=== PATIENT | female | born 1955 | race Caucasian/White ===

== ENCOUNTER 2022-12-21 21:09 | Outpatient (REF) | payer MEDICARE, OTHER, SELFPAY ==
[2022-12-21 21:34] LABS: ALT 25 U/L (14-59); AST 20 U/L (15-37); Alkaline Phosphatase 75 U/L (46-116); Anion Gap 10.5 mmol/L (3-11); BUN 29 mg/dL (7-18); Bilirubin, Total 0.3 mg/dL (0.2-1.0); CO2 27.5 mmol/L (21.0-32.0); CREATININE 1.5 mg/dL (0.55-1.02); Calcium 9.6 mg/dL (8.5-10.1); Chloride 104 mmol/L (98-107); Estimated GFR 37.72 (mL/min/1.73m2); Glucose 135 mg/dL (74-106); Potassium 4.6 mmol/L (3.5-5.1); Sodium 142 mmol/L (136-145); Total Protein 7.3 g/dL (6.4-8.2)
[2022-12-21 22:04] LABS: COMMENT (LAB VIEW ONLY) 72.13 mg/dL; Microalb ug/mg Crea 87.6 ug/mg Cr
== END 2022-12-21 21:10 | disposition home or self-care (01) ==
LOC: LBN 21:09
PROVIDERS: PCP Nurse Practitioner Family; Visit Provider Nurse Practitioner Family
DX: E11.9 Type 2 diabetes mellitus without complications (principal); I10 Essential (primary) hypertension; E78.5 Hyperlipidemia, unspecified; N18.30 Chronic kidney disease, stage 3 unspecified
CPT/HCPCS: 80053; 82043; 82570

== ENCOUNTER 2022-12-23 16:02 | Emergency (ER) | payer MEDICARE, OTHER, SELFPAY ==
[2022-12-23 16:02] VITALS: BP 140/68; PULSE 72; RESP 16; TEMP 36.6; O2SAT 92
--- NOTE | 2022-12-23 16:45 | DI.RAD_ITS ---
Exam(s) XR KNEE LT 3V AP,LAT,MARCELLA EXAM: XR KNEE LT 3V AP,LAT,MARCELLA CLINICAL HISTORY: pain post twisting injury. TECHNIQUE: 2D digital imaging was performed. COMPARISON: No exams were available for comparison FINDINGS: 3 views No evidence obvious fracture or joint effusion. No joint space narrowing. On the outer aspect of th e medial femoral condyle there is slight osseous irregularity cortex noted. There are no previous fo r comparison. IMPRESSION: Subtle osseous finding as above but doubtful for acute fracture as there is no obvious joint effusion evident. This symptoms persist and follow-up MRI would be recommended. DATA REPOSITORY: RADIATION DOSE DELIVERED:
--- NOTE | 2022-12-23 16:56 | ED.GENADUL_ITS ---
Discharge Plan Disposition Patient Disposition: Home Condition: Improving Discharge Details Clinical Impression: Left knee injury Primary Care Provider: Cole Pina ED Provider: Miracle Casiano Home Meds and New Rx's Prescriptions: Continued rosuvastatin 20 mg tablet 20 mg PO DAILY Eliquis 5 mg tablet 5 mg PO BID metformin 1,000 mg tablet 1,000 mg PO BID sotalol 80 mg tablet 80 mg PO BID furosemide 40 mg tablet 40 mg PO DAILY losartan 100 mg tablet 100 mg PO DAILY amlodipine 10 mg tablet 5 mg PO DAILY fenofibrate 160 mg tablet 160 mg PO DAILY paroxetine HCl 20 mg tablet 20 mg PO DAILY aspirin [Adult Low Dose Aspirin] 81 mg tablet,delayed release (DR/EC) 81 mg PO DAILY Osteo Bi-Flex Triple Strength 750 mg-644 mg- 30 mg-1 mg tablet 1 tab PO BID cyanocobalamin (vitamin B-12) 2,500 mcg tablet 2,500 mcg PO DAILY benazepril [Lotensin] 20 mg tablet 20 mg PO DAILY Patient Comments: pt does not think she takes vitamin B complex Capsule 1 cap PO DAILY insulin asp prt-insulin aspart [Novolog Mix 70-30FlexPen U-100] 100 unit/mL (70-30) insulin pen 47 unit subcut QAM Rx Instructions: 47 U AM 78 U PM insulin asp prt-insulin aspart [Novolog Mix 70-30FlexPen U-100] 100 unit/mL (70-30) insulin pen 47 unit subcut BID Qty: 15 0RF Rx Instructions: Inject 47u am and 78u pm allopurinol 100 mg tablet 100 mg PO DAILY Qty: 60 0RF Discharge Instructions Instructions: Knee Sprain (ED) Additional Instructions: You may have injured your meniscus or cushion between your femur and tibia bones in your left leg. Use the knee immobilizer and walker to get around. Take coated aspirin 650 mg every 6 hours as needed for pain. You may alternate this with 650 mg of Tylenol every 6 hours. Ice 20 minutes on and 20 minutes off for the next [address] Gil's office will call you tomorrow for follow-up appointment to assess you further for meniscus injury. If you do not hear from them by noon then please call them at [phone]. Return to ED for inability to ambulate with your immobilizer and walker. Discharge Data Discharge Date/Time-TO BE ENTERED AT DEPARTURE: 12/23/22 18:47 Medical Decision Making At 1 point patient yelled when she had weight on the opposite leg but not the injured 1. Leg immobilizer was placed for comfort and she was given a rolling walker. She was able to walk to the bathroom and back without yelling and said that she felt a lot better with the immobilizer on. Orthopedics is to call her tomorrow morning for a follow-up appointment for possible meniscus injury. She will take Tylenol and aspirin as needed for pain and apply ice 20 minutes on and 20 minutes off for the next 24 to 48 hours. She will return to the ED as needed for any concerns. Imaging Data Radiologic Study: Attestation: I personally reviewed and interpreted this imaging study as follows: (NAD) Imaging: X-Ray (knee--NAD, NFS) HPI General Date/Time Provider Initiated Documentation: 12/23/22 16:23 . HPI Narrative: This 67-year-old female patient presents with a chief complaint of left knee pain after a twisting injury at home. The patient states she was playing with her grandson who was using blocks and a training set. She went to get up and tripped over one of the blocks. She was afraid she was going to fall on him and therefore twisted so that she went into a chair instead. She heard a pop in her left knee but was able to walk afterwards. This pain has slowly worsened such that now if she bears weight she yells out. She cannot walk at this time. She has no weakness or numbness. She denies any other injury. She does have a recent history of sciatica. She denies lower back pain. She did not hit her head and has no neck pain. She denies any other injuries. Related Data Home Medications Medication Instructions Recorded Confirmed allopurinol 100 mg tablet 100 mg PO DAILY #60 tabs 12/21/22 12/23/22 amlodipine 10 mg tablet 5 mg PO DAILY 12/21/22 12/23/22 apixaban 5 mg tablet (Eliquis) 5 mg PO BID 12/21/22 12/23/22 aspirin 81 mg tablet,delayed 81 mg PO DAILY 12/21/22 12/23/22 release (Adult Low Dose Aspirin) benazepril 20 mg tablet (Lotensin) 20 mg PO DAILY 12/21/22 cyanocobalamin (vitamin B-12) 2,500 mcg PO DAILY 12/21/22 12/23/22 2,500 mcg tablet fenofibrate 160 mg tablet 160 mg PO DAILY 12/21/22 12/23/22 furosemide 40 mg tablet 40 mg PO DAILY 12/21/22 12/23/22 glucosamine 750 [id number] 1 tab PO BID 12/21/22 12/23/22 no1 644 mg-C 30 mg-ara 1 mg tablet (Osteo Bi-Flex Triple Strength) insulin aspar prot-insulin aspart 47 unit (0.47 mL) subcut BID #15 mL 12/21/22 12/23/22 100 unit/mL (70-30) subcutaneous pen (Novolog Mix 70-30FlexPen U-100) insulin aspar prot-insulin aspart 47 unit subcut QAM 12/21/22 100 unit/mL (70-30) subcutaneous pen (Novolog Mix 70-30FlexPen U-100) losartan 100 mg tablet 100 mg PO DAILY 12/21/22 12/23/22 metformin 1,000 mg tablet 1,000 mg PO BID 12/21/22 12/23/22 paroxetine HCl 20 mg tablet 20 mg PO DAILY 12/21/22 12/23/22 rosuvastatin 20 mg tablet 20 mg PO DAILY 12/21/22 12/23/22 sotalol 80 mg tablet 80 mg PO BID 12/21/22 12/23/22 vitamin B complex 1 cap PO DAILY 12/21/22 12/23/22 Previous Rx's Medication Instructions Recorded allopurinol 100 mg tablet 100 mg PO DAILY #60 tabs 12/21/22 insulin aspar prot-insulin aspart 47 unit (0.47 mL) subcut BID #15 mL 12/21/22 100 unit/mL (70-30) subcutaneous pen (Novolog Mix 70-30FlexPen U-100) Allergies Allergy/AdvReac Type Severity Reaction Status Date / Time ibuprofen Allergy Intermediate Verified 12/23/22 16:06 General Stated Complaint: Orthopedic RIVERA: 4 Review of Systems Constitutional Constitutional: Denies headache(s) and Denies weakness Eyes Eyes: Denies diplopia and Reports other (no redness) ENT Ears, Nose, Mouth, and Throat: Denies otalgia, Denies headache(s), Denies nasal congestion, Denies nasal discharge, Denies neck pain and Denies sore throat Cardiovascular Cardiovascular: Denies chest pain, Denies palpitations and Denies dyspnea Respiratory Respiratory: Denies cough and Denies dyspnea Gastrointestinal Gastrointestinal: Denies abdominal pain, Denies diarrhea, Denies nausea and Denies vomiting Genitourinary Genitourinary: Denies dysuria Musculoskeletal Musculoskeletal: Reports as per HPI, Denies neck pain and Denies numbness Integumentary/Breasts Skin/Breast: Reports other (No obvious swelling or ecchymosis left knee) Neurologic Neurologic: Denies headache(s), Denies numbness and Denies weakness Endocrine Endocrine: Denies palpitations PFSH All Active Problems (Updated 12/23/22 @ 18:26 by Miracle Casiano MD) Left knee injury (Acute) Sciatica, right side (Acute) Morbid obesity (Acute) Sleep apnea, obstructive (Chronic) Left ventricular hypertrophy (Acute) Iron deficiency (Acute) Hyperlipidemia (Acute) Hypercalcemia (Acute) GI bleed (Chronic) GERD (gastroesophageal reflux disease) (Chronic) Generalized anxiety disorder (Acute) Fatigue (Acute) Essential hypertension (Acute) Diverticulosis (Acute) Diabetes mellitus type 2, controlled, without complications (Acute) Coronary artery disease (Chronic) Stage 3 chronic kidney disease due to type 2 diabetes mellitus (Acute) Impacted cerumen, left ear (Acute) Nuclear senile cataract (Acute) Atherosclerosis of both carotid arteries (Acute) Benign hypertension (Acute) Angina pectoris (Chronic) Anemia (Chronic) Surgical History Status post cardiac pacemaker procedure Family History Mother Hyperlipidemia Hypertension Depression Father Hyperlipidemia Diabetes Heart disease Hypertension Obesity Stroke Sister Hyperlipidemia Diabetes Hypertension Heart disease Obesity Cancer Unspecified Brother No problems noted. Daughter Hypertension Son Hypertension Obesity Maternal Grandmother Cancer Unspecified Paternal Grandmother Memory loss Maternal Grandfather No problems noted. Paternal Grandfather Hyperlipidemia Heart disease Hypertension Obesity Social History Smoking/Tobacco Use Status: Never Second Hand Exposure: Yes Smoking risk assessment performed?: Yes Alcohol Intake: current Alcohol Intake frequency: a few times a month Alcohol type: beer and wine Drug use: Never Substance use type: does not use Caregiver/Support person: Yes Household members: spouse Housing: house Communication Needs: Hard of Hearing and Corrective Lenses Do you need help understanding health information?: Rarely Pets and animals: No Sexually active: No Do you think of yourself as: straight/heterosexual Current gender identity: female What is your relationship status?: How often do you talk on the phone with friends or family?: three or more times per week How often do you get together with friends or relatives?: three or more times per week How often do you attend mormonism or yarsanism services?: decline to answer Do you belong to any clubs or organized social groups?: yes Panel score (0-1 are the most socially isolated patients): 3 What type of physical activity do you participate in: walking Duration: 15-30 minutes/day Frequency: daily Radha/Congregation: Taoism Special radha needs: No Seatbelt use: always Helmet use: Yes Helmet use: always Drive intox or ride w/intox superintendent drivers: No Do you feel safe at home: Yes Do you feel safe in your relationship?: Yes Exam Const General: well developed, well groomed and other (obese, morbidly) Nutritional Appearance: well nourished Orientation: alert and oriented x3 HENMT Head: normocephalic and atraumatic Ears: external ears normal Mouth: oropharynx normal and moist mucous membranes Throat: posterior oropharynx normal Eyes Conjunctivae: conjunctivae normal Neck Neck: full ROM and supple Chest Chest: normal inspection of the chest Resp Effort & Inspection: normal respiratory effort Auscultation: clear to auscultation bilaterally Cardio Rate: regular rate Rhythm: regular rhythm Heart Sounds: no murmurs and no rubs GI Inspection: normal to inspection and other (Morbidly obese) Palpation: soft, nontender and other (non distended) Auscultation: normal bowel sounds Skin General skin exam: other (PWD) Neuro General: other (sensation intact LLE) Speech: speech normal Motor: other (VIRGEN) Sensory Exam: no sensory deficits noted Extrem General: normal to inspection, full ROM and pedal edema present Right lower extremity: normal to inspection and full ROM Left lower extremity: normal to inspection and full ROM Other: Left knee is nontender to palpation with good patellar ballotment. MCL and LCL are tight. Anterior and posterior cruciate ligaments are tight. Jalen's revealed a click that I could both hear and feel and the patient's said hurt. In spite of this compression was negative for pain as was distraction. Patient is neurovascularly intact distally. She yelled when she stood up on her good leg. Psych Mental Status: mental status grossly normal Speech and Movement: speech and movement normal Affect: normal affect Course Vital Signs Vital signs: Vital Signs Temperature 36.6 C 12/23/22 16:02 Pulse 72 12/23/22 16:02 Respiratory Rate 16 12/23/22 16:02 Blood Pressure 140/68 12/23/22 16:02 Pulse Oximetry 92 12/23/22 16:02 Temperature 36.6 C 12/23/22 16:02 Temperature Source Skin 12/23/22 16:02 Pulse 72 12/23/22 16:02 Respiratory Rate 16 12/23/22 16:02 Respiratory Effort Normal, Non-Labored 12/23/22 16:10 Blood Pressure 140/68 12/23/22 16:02 Blood Pressure Position Sitting 12/23/22 16:02 Pulse Oximetry 92 12/23/22 16:02 Oxygen Delivery Method Room Air 12/23/22 16:02 Oxygen Flow Rate 0 12/23/22 16:02 Pain Level 2 12/23/22 16:02 Comment when pt tries to stand pain is a 03/2612/23/22 16:02 PAWSS Have you Been Recently Intoxicated or Drunk Within the Last 30 days?: No Have you Ever Experienced Previous Episodes of Alcohol Withdrawal?: No Have you ever Experienced Withdrawal Seizures?: No Have you ever Experienced Delirium Tremens(DT)s?: No Have you ever undergone Alcohol Rehabilitation Treatment (i.e, inpt ot outpatient treatment programs)?: No Have you ever Experienced Blackouts?: No Have you ever Combined Alcohol with other Downers within the last 90 days?: No Have you ever Combined Alcohol with any other Substance of Abuse during the last 90 days?: No Positive Blood Alcohol level on Presentation? [PCS.BAL]: No Evidence of Increased Autonomic Activity (i.e. HR>120, tremor, sweating, agitation, nausea)?: No Result: 0
[2022-12-23] MEDS: Aspirin E.C. 325 MG TABEC 650 MG PO (17:02)
--- NOTE | 2022-12-23 18:09 | DI.VRAD_ITS ---
PROCEDURE INFORMATION: Exam: XR Left Knee Exam date and time: 12/23/2022 5:25 PM Age: 67 years old Clinical indication: Other: Pain post twisting injury TECHNIQUE: Imaging protocol: Radiologic exam of the left knee. Views: 3 views. COMPARISON: No relevant prior studies available. FINDINGS: Bones/joints: Normal. Soft tissues: Normal. IMPRESSION: No acute findings. Dictated and Authenticated by: Catarino Lemus MD. Ordering:KAUSHAL Rausch MD
== END 2022-12-23 18:47 | disposition home or self-care (01) ==
PROVIDERS: Emergency Provider Emergency Medicine; PCP Nurse Practitioner Family
DX: S89.92XA Unspecified injury of left lower leg, initial encounter (principal); E11.22 Type 2 diabetes mellitus with diabetic chronic kidney disease; I12.9 Hypertensive chronic kidney disease with stage 1 through stage 4 chronic kidney disease, or unspecified chronic kidney disease; N18.30 Chronic kidney disease, stage 3 unspecified; W01.0XXA Fall on same level from slipping, tripping and stumbling without subsequent striking against object, initial encounter; Y93.01 Activity, walking, marching and hiking; Y92.019 Unspecified place in single-family (private) house as the place of occurrence of the external cause; Y99.9 Unspecified external cause status
CPT/HCPCS: 73562; 82962; 99283

== ENCOUNTER → 2023-01-09 08:30 | Outpatient (BNVA) | payer MEDICARE, OTHER, SELFPAY | PROVIDERS: PCP Nurse Practitioner Family; Referring Provider Nurse Practitioner Family; Visit Provider Student in an Organized Health Care Education/Training Program | DX: S89.92XA Unspecified injury of left lower leg, initial encounter (principal); W18.49XA Other slipping, tripping and stumbling without falling, initial encounter | CPT/HCPCS: 99203; 99213 ==

== ENCOUNTER → 2023-03-05 09:55 | Outpatient (BNVA) | payer MEDICARE, OTHER, SELFPAY | PROVIDERS: PCP Nurse Practitioner Family; Referring Provider Nurse Practitioner Family; Visit Provider Surgery | DX: L91.8 Other hypertrophic disorders of the skin (principal) | CPT/HCPCS: 99202; 99213 ==

== ENCOUNTER 2023-03-11 10:59 | Outpatient (REF) | payer MEDICARE, OTHER, SELFPAY ==
--- NOTE | 2023-03-11 11:35 | SKI_PTH ---
PATIENT: Cindy Olivas LOC: [facility] U#:[id number] AGE/SX: 67/F ROOM: RE03/11/[address]: Natalie Rubio MD : 1955 BED: DIS: 03/11/2023 SPEC #: [id number] RECD: 03/11/23 17:44 STATUS: MARY BETH REQ #: [id number] ERIK: 03/11/23 11:[address]: Natalie Rubio DEPT: Surgical Specimen RECD BY: Angie Grayson ENTERED: 03/11/23 17:45 SP TYPE: LAURYN MENDES DR: Cole Mckay DNP Tissues: 1 - SKIN BIOPSY(SHAVE/PUNCH) Procedures: GROSS AND MICRO LEVEL 3 Comments: [id number]
== END 2023-03-11 11:00 | disposition home or self-care (01) ==
LOC: LBN 10:59
PROVIDERS: PCP Nurse Practitioner Family; Visit Provider Surgery
DX: D23.71 Other benign neoplasm of skin of right lower limb, including hip (principal); L91.8 Other hypertrophic disorders of the skin
CPT/HCPCS: 88304; 88305

== ENCOUNTER → 2023-03-11 10:59 | Outpatient (BNVA) | payer MEDICARE, OTHER, SELFPAY | PROVIDERS: PCP Nurse Practitioner Family; Referring Provider Nurse Practitioner Family; Visit Provider Surgery | DX: L91.8 Other hypertrophic disorders of the skin (principal) | CPT/HCPCS: 11302; 99212 ==

== ENCOUNTER 2024-02-15 11:59 | Outpatient (CLI) | payer MEDICARE, OTHER, SELFPAY ==
--- NOTE | 2024-02-15 12:30 | DI.RAD_ITS ---
Exam(s) XR ABDOMEN FLAT PLATE EXAM: XR ABDOMEN FLAT PLATE CLINICAL HISTORY: insulin needle broke off, RLQ. TECHNIQUE: 2D digital imaging was performed. COMPARISON: No exams were available for comparison FINDINGS: AP supine view of the abdomen-pelvis. The bowel gas pattern is nonspecific in the supine position. There are surgical clips in the right iliac fossa probably related to prior appendectomy. There is n o radiopaque foreign body evident in the abdomen and pelvis. No acute osseous findings. IMPRESSION: No radiopaque foreign body evident. Nonspecific bowel gas pattern DATA REPOSITORY: RADIATION DOSE DELIVERED:
--- NOTE | 2024-02-15 13:06 | DI.VRAD_ITS ---
PROCEDURE INFORMATION: Exam: XR Abdomen Exam date and time: 02/15/2024 12:25 PM Age: 68 years old Clinical indication: Other: Foreign body in soft tissue, questionable diabetic needle left in skin. TECHNIQUE: Imaging protocol: Radiologic exam of the abdomen. Views: Frontal supine view of the abdomen. 1 View. COMPARISON: No relevant prior studies available. FINDINGS: Tubes, catheters and devices: Surgical clips project over the right iliac bone. Gastrointestinal tract: Normal. No bowel dilation. Bones/joints: Unremarkable. Soft tissues: No radiopaque foreign body identified. IMPRESSION: No radiopaque foreign body identified. Dictated and Authenticated by: Lilo Guillen MD. Ordering:JAMARI Galvan MD
== END 2024-02-15 12:19 ==
LOC: LBN 12:05 → DI 12:19
PROVIDERS: PCP Nurse Practitioner Family; Visit Provider Nurse Practitioner Family
DX: M79.5 Residual foreign body in soft tissue (principal)
CPT/HCPCS: 74018

== ENCOUNTER 2024-03-19 19:56 | Outpatient (REF) | payer MEDICARE, SELFPAY ==
[2024-03-19 21:15] LABS: Bilirubin Negative (Negative); Blood Trace-intact (Negative); Clarity Clear (Clear); Glucose Negative (Negative); Ketones Negative (Negative); Leukocyte Esterase Moderate (Negative); Nitrite Negative (Negative); Specific Gravity 1.015 (1.005-1.025); Urobilinogen 0.2 mg/dL (Up to 0.2); pH 5.5 (5-8)
[2024-03-19 21:39] LABS: Bacteria Negative HPF (Negative); C & S Indicated? Yes; Crystals Negative HPF (Negative); Epithelial Cells Rare HPF (Negative); Mucus Trace (Negative); Other Cells Rare Transitional (Negative); WBC 20-50 HPF (0-5)
== END 2024-03-19 19:57 | disposition home or self-care (01) ==
LOC: LBN 19:56
PROVIDERS: PCP Nurse Practitioner Family; Visit Provider Nurse Practitioner Family
DX: R39.9 Unspecified symptoms and signs involving the genitourinary system (principal); R82.89 Other abnormal findings on cytological and histological examination of urine
CPT/HCPCS: 81003; 81015; 87086

== ENCOUNTER 2024-04-30 16:28 | Outpatient (CLI) | payer MEDICARE, OTHER, SELFPAY ==
--- NOTE | 2024-04-30 15:30 | DI.RAD_ITS ---
Exam(s) XR CHEST 2V PA LATERAL EXAM: XR CHEST 2V PA LATERAL CLINICAL HISTORY: R05.9 Cough, evaluate pna TECHNIQUE: 2D digital imaging was performed. Two views. COMPARISON: CR,XR XR ABDOMEN FLAT PLATE from 02/15/2024 FINDINGS: HEART: Mildly enlarged. Pacemaker. Aorta: Not dilated. PULMONARY VASCULATURE: Mildly prominent MEDIASTINUM: Unremarkable. LUNGS: Clear. No focal infiltrate. PLEURAL SPACE: No pleural effusion or pneumothorax. BONE:Unremarkable for age. SOFT TISSUES: Unremarkable. IMPRESSION: No acute abnormality. DATA REPOSITORY: RADIATION DOSE DELIVERED:
== END 2024-04-30 16:48 ==
PROVIDERS: PCP Nurse Practitioner Family; Visit Provider Nurse Practitioner Family
DX: R05.9 Cough, unspecified (principal)
CPT/HCPCS: 71046

== ENCOUNTER 2024-11-17 09:08 | Outpatient (CLI) | payer MEDICARE, OTHER, SELFPAY ==
--- NOTE | 2024-11-17 08:15 | DI.RAD_ITS ---
Exam(s) XR CHEST 2V PA LATERAL EXAM: XR CHEST 2V PA LATERAL CLINICAL HISTORY: cough, ? pneumonia. TECHNIQUE: 2D digital imaging was performed. COMPARISON: No exams were available for comparison FINDINGS: 2 views: Bipolar left subclavian pacemaker again noted with lead tips in RA and RV, unchanged Heart size is normal. The mediastinum is not widened. Left lung is clear. There is slightly increased markings in the mid right lung field. No pleural ef fusions. No pulmonary edema. IMPRESSION: Mild increased markings in the mid right lung field. Possibly representing early infiltrate. There are no pleural effusions. Appropriate imaging follow-up to resolution recommended. DATA REPOSITORY: RADIATION DOSE DELIVERED:
== END 2024-11-17 09:28 ==
LOC: DI 09:09
PROVIDERS: PCP Nurse Practitioner Family; Visit Provider Physician Assistant
DX: R05.9 Cough, unspecified (principal)
CPT/HCPCS: 71046

== ENCOUNTER 2025-04-26 22:36 | Emergency (ER) | payer MEDICARE, OTHER, SELFPAY ==
--- NOTE | 2025-04-26 22:30 | DI.RAD_ITS ---
Exam(s) XR KNEE LT 4V AP,LAT,MARCELLA,PAT EXAM: XR KNEE LT 4V AP,LAT,MARCELLA,PAT CLINICAL HISTORY: fall, hit knee and patella, on elequis. TECHNIQUE: 2D digital imaging was performed. COMPARISON: CR,XR XR KNEE LT 3V AP,LAT,MARCELLA from 12/23/2022 FINDINGS: Five views No evidence of acute fracture nor obvious joint effusion. However, there is significant soft tissue swelling anterior to the patella consistent with probable hematoma, given the direct trauma history here. Medial and lateral compartments of the knee appear unremarkable. Some degenerative changes noted in the patellofemoral compartment. IMPRESSION: No acute osseous findings in the knee. However, there is abnormal swelling and density in the prepatellar soft tissues. Given the history here this is probably hematoma. Preliminary V rad report was reviewed DATA REPOSITORY: RADIATION DOSE DELIVERED:
--- NOTE | 2025-04-26 22:30 | DI.RAD_ITS ---
Exam(s) XR SHOULDER RT COMPLETE 2+V EXAM: XR SHOULDER RT COMPLETE 2+V CLINICAL HISTORY: fall, on elequis, pain in shoulder. TECHNIQUE: 2D digital imaging was performed. COMPARISON: No exams were available for comparison FINDINGS: Four views No evidence of fracture or dislocation nor abnormal soft tissue calcifications. Subacromial space is not diminished. There are mild degenerative changes in the glenohumeral and AC joints. Bone density normal. No osseous lesions. IMPRESSION: Mild degenerative changes in the glenohumeral joint. No fractures. DATA REPOSITORY: RADIATION DOSE DELIVERED:
[2025-04-26 22:34] VITALS: BP 168/71; PULSE 78; RESP 18; TEMP 36.6; O2SAT 94
[2025-04-26] MEDS: Diclofenac 1% Gel 100 GM TUBE TP (22:48)
[2025-04-26 22:49] LABS: Abs Immature Grans 0.04 10^3/uL (0.0-0.06); HCT 39.0 % (36.0-46.0); HGB 13.0 g/dL (11.2-15.7); Immature Grans % 0.5 %; MCH 31.0 pg (27.0-33.0); MCHC 33.3 % (32.0-36.0); MCV 93 fL (80-95); MPV 12.0 fL (8.0-11.0); Platelet Count 253 10^3/uL (130-400); RBC 4.20 10^6/uL (3.93-5.22); RDW 13.7 % (11.7-14.6); RDW-SD 45.8 fL; WBC 7.96 10^3/uL (4.4-10.8)
[2025-04-26 23:03] LABS: INR 1.0 (0.9-1.1); PTT Activated 25.2 sec (20.6-30.2); Prothrombin Time 10.4 sec (9.1-11.1)
--- NOTE | 2025-04-26 23:34 | DI.VRAD_ITS ---
PROCEDURE INFORMATION: Exam: XR Left Knee Exam date and time: 04/26/2025 10:55 PM Age: 69 years old Clinical indication: Injury or trauma; Blunt trauma; Left; Injury date: 04/26/25; Injury details: Fall, hit knee on patella, on elequis TECHNIQUE: Imaging protocol: Radiologic exam of the left knee. Views: 4 or more views. COMPARISON: CR XR KNEE LT 3V AP,LAT,MARCELLA 12/23/2022 5:25 PM FINDINGS: Bones/joints: Normal. Soft tissues: Thickened anterior soft tissue. IMPRESSION: 1. No acute findings. 2. Thickened anterior soft tissue which could represent contusion/hematoma. Dictated and Authenticated by: John Palacios MD. Orderin Matt Chu MD
--- NOTE | 2025-04-26 23:36 | DI.VRAD_ITS ---
PROCEDURE INFORMATION: Exam: XR Right Shoulder Exam date and time: 04/26/2025 11:14 PM Age: 69 years old Clinical indication: Injury or trauma; Blunt trauma (contusions or hematomas); Right; Injury date: 04/26/25; Injury details: Fall, shoulder pain TECHNIQUE: Imaging protocol: Radiologic exam of the right shoulder. Views: 2 or more views. COMPARISON: CR XR CHEST 2V PA LATERAL 11/17/2024 10:45 AM FINDINGS: Bones/joints: Degenerative change of the acromioclavicular and glenohumeral joints. Lungs: Diffuse interstitial lung markings without focal consolidation visualized. Vasculature: Heavy atherosclerotic disease of the aortic arch. Soft tissues: Normal. Other findings: Partially evaluated cardiac pacer device. IMPRESSION: No acute findings. Dictated and Authenticated by: John Palacios MD. Orderin Matt Chu MD
--- NOTE | 2025-04-26 23:50 | W.ED.GENAD ---
Discharge Plan Disposition Patient Disposition: Home Condition: Good Discharge Details Clinical Impression: Injury of left knee, Hematoma of left knee region, Sprain of right shoulder Primary Care Provider: Cole Pina ED Provider: Vlad Gutierrez Home Meds and New Rx's Prescriptions: No Action allopurinol 100 mg tablet 300 mg .ROUTE .COMPLEX Rx Instructions: 300 mg; insulin glargine [Basaglar KwikPen U-100 Insulin] 100 unit/mL (3 mL) insulin pen 50 unit subcut BID Ozempic 0.25 mg or 0.5 mg (2 mg/3 mL) pen injector 0.5 mg subcut QWEEK Rx Instructions: for 4 weeks benzonatate 100 mg capsule 100 mg PO TID PRN (Reason: cough) Qty: 14 0RF cholecalciferol (vitamin D3) 10 mcg (400 unit) capsule 10 mcg PO DAILY fenofibrate 160 mg tablet 160 mg PO DAILY Qty: 90 1RF metformin 1,000 mg tablet 1,000 mg PO BID Qty: 180 0RF insulin asp prt-insulin aspart [Novolog Mix 70-30FlexPen U-100] 100 unit/mL (70-30) insulin pen 47 unit subcut QAM Qty: 90 1RF Rx Instructions: 47 U AM 78 U PM rosuvastatin 20 mg tablet 20 mg PO DAILY Eliquis 5 mg tablet 5 mg PO BID sotalol 80 mg tablet 80 mg PO BID furosemide 40 mg tablet 40 mg PO DAILY losartan 100 mg tablet 100 mg PO DAILY amlodipine 10 mg tablet 5 mg PO DAILY paroxetine HCl 20 mg tablet 20 mg PO DAILY aspirin [Adult Low Dose Aspirin] 81 mg tablet,delayed release (DR/EC) 81 mg PO DAILY Osteo Bi-Flex Triple Strength 750 mg-644 mg- 30 mg-1 mg tablet 1 tab PO BID cyanocobalamin (vitamin B-12) 2,500 mcg tablet 2,500 mcg PO DAILY vitamin B complex Capsule 1 cap PO DAILY fluconazole 150 mg tablet 150 mg PO ONCE Qty: 2 0RF Rx Instructions: Administer 1 tab once. If symptoms persist may repeat in 3 days albuterol sulfate 90 mcg/actuation HFA aerosol inhaler 2 puff inhalation Q6H PRN (Reason: shortness of breath or wheezing) Qty: 6.7 0RF (DME) True Metrix Glucose Test Strip Strip See Rx Instructions .Route Qty: 100 0RF Rx Instructions: As directed. Dx: E11.9 Once daily testing Discharge Instructions Instructions: Minor Contusion ED Additional Instructions: At this time your x-rays are negative for any evidence of fracture, however you do have evidence of a large hematoma in the left knee which will be causing some significant pain. Please ice the area frequently for the next 48 hours, after this you can transition to gentle heat to help the hematoma reabsorb. Keep an Guero wrap on it gently to help encourage the reabsorption of the blood/hematoma. Please use the walker to help with ambulation. Use the Voltaren gel as needed for pain in your shoulder and knee. Please take Tylenol as needed to help with the pain. If you notice a blister forming or any leakage or drainage or redness or warmth in your knee where the hematoma was please return immediately for reassessment. Please follow-up closely with your primary care provider and your eye specialist in [place] for reassessment and continued monitoring. If you notice any worsening of your symptoms, or any new symptoms such as vomiting, diarrhea, fever, chills, shortness of breath, chest pain, numbness, weakness, or fainting , please return immediately to the emergency department for reevaluation. Please follow up with your primary care provider as soon as possible for reassessment and reevaluation. As always, it was a pleasure participating in your medical care today. Stand Alone Forms: Portal Information Referrals: Cole Pina NP [Primary Care Provider, Medicine] [facility] General Date/Time Provider Initiated Documentation: 04/26/25 22:41. HPI Narrative: This is a pleasant 69-year-old female with a past medical history of GERD, type 2 diabetes, coronary artery disease, pacemaker, chronically on Eliquis, presents today for evaluation of fall. About 40 minutes prior to arrival the patient was walking in her home when she tripped on the carpet, she caught her right arm on the door and torqued her right shoulder and hit and landed on her left knee. She had pain in both of those locations. Pain is made worse with movement. Improved by nothing. She received Tylenol from EMS. She denies numbness or tingling. She did not hit her head. She had no loss of consciousness. She had immediate swelling in her left knee. She had no trauma anywhere else. No other complaints at this time. Related Data Home Medications Medication Instructions Recorded Confirmed amlodipine 10 mg tablet 5 mg PO DAILY 12/21/22 11/16/24 apixaban 5 mg tablet (Eliquis) 5 mg PO BID 12/21/22 11/16/24 aspirin 81 mg tablet,delayed 81 mg PO DAILY 12/21/22 11/16/24 release (Adult Low Dose Aspirin) cyanocobalamin (vitamin B-12) 2,500 mcg PO DAILY 12/21/22 11/16/24 2,500 mcg tablet furosemide 40 mg tablet 40 mg PO DAILY 12/21/22 11/16/24 glucosamine 750 [id number] 1 tab PO BID 12/21/22 11/16/24 no1 644 mg-C 30 mg-ara 1 mg tablet (Osteo Bi-Flex Triple Strength) losartan 100 mg tablet 100 mg PO DAILY 12/21/22 11/16/24 paroxetine HCl 20 mg tablet 20 mg PO DAILY 12/21/22 11/16/24 rosuvastatin 20 mg tablet 20 mg PO DAILY 12/21/22 11/16/24 sotalol 80 mg tablet 80 mg PO BID 12/21/22 11/16/24 vitamin B complex 1 cap PO DAILY 12/21/22 11/16/24 cholecalciferol (vitamin D3) 10 10 mcg PO DAILY 01/19/23 11/16/24 mcg (400 unit) capsule fenofibrate 160 mg tablet 160 mg PO DAILY #90 tabs 01/19/23 11/16/24 insulin aspar prot-insulin aspart 47 unit (0.47 mL) subcut QAM #90 mL 01/19/23 11/16/24 100 unit/mL (70-30) subcutaneous pen (Novolog Mix 70-30FlexPen U-100) metformin 1,000 mg tablet 1,000 mg PO BID #180 tabs 01/19/23 11/16/24 fluconazole 150 mg tablet 150 mg PO ONCE #2 tabs 03/19/24 11/16/24 albuterol sulfate 90 mcg/actuation 2 puff inhalation Q6H PRN 04/30/24 11/16/24 aerosol inhaler shortness of breath or wheezing #6.7 grams blood sugar diagnostic (True #100 ea 04/30/24 11/16/24 Metrix Glucose Test Strip) allopurinol 100 mg tablet 300 mg .Route .COMPLEX 11/16/24 11/16/24 benzonatate 100 mg capsule 100 mg PO TID PRN cough #14 caps 11/16/24 11/16/24 insulin glargine 100 unit/mL (3 50 unit subcut BID 11/16/24 11/16/24 mL) subcutaneous pen (Basaglar KwikPen U-100 Insulin) semaglutide 0.25 mg or 0.5 mg (2 0.5 mg subcut QWEEK 11/16/24 11/16/24 mg/3 mL) subcutaneous pen injector (Ozempic) Previous Rx's Medication Instructions Recorded fenofibrate 160 mg tablet 160 mg PO DAILY #90 tabs 01/19/23 insulin aspar prot-insulin aspart 47 unit (0.47 mL) subcut QAM #90 mL 01/19/23 100 unit/mL (70-30) subcutaneous pen (Novolog Mix 70-30FlexPen U-100) metformin 1,000 mg tablet 1,000 mg PO BID #180 tabs 01/19/23 fluconazole 150 mg tablet 150 mg PO ONCE #2 tabs 03/19/24 albuterol sulfate 90 mcg/actuation 2 puff inhalation Q6H PRN 04/30/24 aerosol inhaler shortness of breath or wheezing #6.7 grams blood sugar diagnostic (True #100 ea 04/30/24 Metrix Glucose Test Strip) benzonatate 100 mg capsule 100 mg PO TID PRN cough #14 caps 11/16/24 Allergies Allergy/AdvReac Type Severity Reaction Status Date / Time ibuprofen Allergy Intermediate Anaphylaxis Verified 11/16/24 18:01 General Stated Complaint: Fall/Non TraumaCriteria RIVERA: 3 Exam Narrative Exam Narrative: 1.Const: Well-nourished, Well-developed, appearing stated age 2.Eyes: PERRL, no conjunctival injection, and symmetrical lids. 3.ENT: Atraumatic external nose and ears. Moist MM. Neck: Symmetric, trachea midline, No thyromegaly. 4.CVS: +S1/S2, Peripheral pulses 2+ and equal in all extremities. Brisk capillary refill in all extremities. 5.RESP: Unlabored respiratory effort. Clear to auscultation bilaterally. No wheezes rales or rhonchi 6.GI: Soft, Nontender/Nondistended, No hepatosplenomegaly. No guarding or rebound. 7.MSK: Left upper extremity and right lower extremity are unremarkable with no swelling contusion or other tenderness or abnormality. Right upper extremity: Right shoulder demonstrates minimal tenderness over the anterior aspect of the humeral head. Pain with external rotation, but no significant pain with internal, abduction or adduction. Normal range of motion otherwise, normal strength. Normal neurovascular exam distally with no numbness tingling or diminished pulses or capillary refill. Normal industrial hygienist strength, normal flexion at the elbow and normal strength with movement of the right shoulder. Left lower extremity demonstrates swelling and tenderness over the left knee secondary to a large hematoma over the patella and the medial and lateral aspects of the knee. Hyperesthesias are noted on the skin, no tenderness posteriorly in the posterior popliteal space, mild tenderness in the medial and lateral aspect, exam is otherwise limited for flexion and extension secondary to knee size, swelling and restricted motion from this. Distal exam demonstrates no tenderness over the mid or distal tib/fib, normal ankle with brisk capillary refill and +2 pulses bilaterally. No calf tenderness. No mid or proximal femoral tenderness. No tenderness on palpation of the hips bilaterally with movement of the hips. 8.Skin: Warm, Dry. Large hematoma over the left knee 9.Neuro: first calender worker II-XII grossly intact. Sensation grossly intact, no focal neurologic deficits. 10.Psych: (AAO) x3. Appropriate mood and affect Course Vital Signs Vital signs: Vital Signs Temperature 36.6 C 04/26/25 22:34 Pulse 78 04/26/25 22:34 Respiratory Rate 18 04/26/25 22:34 Blood Pressure 168/71 H 04/26/25 22:34 Pulse Oximetry 94 04/26/25 22:34 Temperature 36.6 C 04/26/25 22:34 Temperature Source Tympanic 04/26/25 22:34 Pulse 78 04/26/25 22:34 Respiratory Rate 18 04/26/25 22:34 Blood Pressure 168/71 H 04/26/25 22:34 Blood Pressure Position Supine 04/26/25 22:34 Pulse Oximetry 94 04/26/25 22:34 Oxygen Delivery Method Room Air 04/26/25 22:34 Oxygen Flow Rate 0 04/26/25 22:34 Pain Level 10 04/26/25 22:34 Lab/Test Results Lab/Test Results: Laboratory Tests Range/Units 04/26/25 22:41 WBC (4.4-10.8) 10^3/uL 7.96 RBC (3.93-5.22) 10^6/uL 4.20 Hgb (11.2-15.7) g/dL 13.0 Hct (36.0-46.0) % 39.0 MCV (80-95) fL 93 MCH (27.0-33.0) pg 31.0 MCHC (32.0-36.0) % 33.3 RDW (11.7-14.6) % 13.7 Plt Count (130-400) 10^3/uL 253 MPV (8.0-11.0) fL 12.0 H Immature Gran % % 0.5 Neutrophils % % 65.2 Lymphocytes % % 19.7 Monocytes % % 8.2 Eosinophils % % 5.9 Basophils % % 0.5 Nucleated RBC % (0.0-0.3) % 0.0 Absolute Neutrophils (1.2-6.7) 10^3/uL 5.19 Absolute Lymphocytes (1.2-3.4) 10^3/uL 1.57 Absolute Monocytes (0.1-0.8) 10^3/uL 0.65 Absolute Eosinophils (0.0-0.7) 10^3/uL 0.47 Absolute Basophils (0.0-0.2) 10^3/uL 0.04 PT (9.1-11.1) sec 10.4 INR (0.9-1.1) 1.0 APTT (20.6-30.2) sec 25.2 Medical Decision Making This is a pleasant 69-year-old female with a past medical history of GERD, type 2 diabetes, coronary artery disease, pacemaker, chronically on Eliquis, presents today for evaluation of fall. About 40 minutes prior to arrival the patient was walking in her home when she tripped on the carpet, she caught her right arm on the door and torqued her right shoulder and hit and landed on her left knee. She had pain in both of those locations. Pain is made worse with movement. Improved by nothing. She received Tylenol from EMS. She denies numbness or tingling. She did not hit her head. She had no loss of consciousness. She had immediate swelling in her left knee. She had no trauma anywhere else. No other complaints at this time. Right upper extremity: Right shoulder demonstrates minimal tenderness over the anterior aspect of the humeral head. Pain with external rotation, but no significant pain with internal, abduction or adduction. Normal range of motion otherwise, normal strength. Normal neurovascular exam distally with no numbness tingling or diminished pulses or capillary refill. Normal industrial hygienist strength, normal flexion at the elbow and normal strength with movement of the right shoulder. Left lower extremity demonstrates swelling and tenderness over the left knee secondary to a large hematoma over the patella and the medial and lateral aspects of the knee. Hyperesthesias are noted on the skin, no tenderness posteriorly in the posterior popliteal space, mild tenderness in the medial and lateral aspect, exam is otherwise limited for flexion and extension secondary to knee size, swelling and restricted motion from this. Distal exam demonstrates no tenderness over the mid or distal tib/fib, normal ankle with brisk capillary refill and +2 pulses bilaterally. No calf tenderness. No mid or proximal femoral tenderness. No tenderness on palpation of the hips bilaterally with movement of the hips. Differential is high for potential contusion of the right shoulder and left knee, as well as potential mild rotator cuff injury of the right shoulder. Incidence of fractures less likely given exam findings but we will get x-ray to rule out acute osseous process. With normal strength and movement I do not see an indication for sling. Regards to the knee, osseous injury is high in the differential, however blood from the hematoma itself potentially getting into the knee cavity certainly concerning as potential cause of pain. Will get an x-ray, will apply Voltaren gel to the shoulder, will get ice and Guero wrap, monitor closely and reassess. 11:59 PM X-ray results negative for acute process of fracture. Patient is doing well. With no evidence of fracture, patient is able to bear weight gently on the left knee. Will give walker with recommendations for continued gentle Guero wrap, ice, and close follow-up. She and her significant other are leaving for [place] in the next few weeks. Recommend close follow-up with her PCP and eye specialist. At this time with no evidence of fracture, with good ambulation to suggest no tibial plateau fracture, we will discharge home. Recommend close follow-up. Discussed red flags for which to return. Additionally I did discuss with her the risk of developing And infected hematoma or skin breakdown. We discussed ways for mitigation of this and reasons for which to promptly return if she does notice this. I have extensively reviewed the treatment plan and discharge instructions with the patient and their family. I have addressed all patient concerns at this time. The patient and family was made aware of what symptoms to monitor for that would warrant a return to the emergency department. Discussed the plan with the patient and family, they demonstrate verbal understanding and agreement with our assessment and plan at this time. The documentation in this chart was dictated using [employer] dictation software. Please excuse any dictation errors. FINDINGS: Bones/joints: Degenerative change of the acromioclavicular and glenohumeral joints. Lungs: Diffuse interstitial lung markings without focal consolidation visualized. Vasculature: Heavy atherosclerotic disease of the aortic arch. Soft tissues: Normal. Other findings: Partially evaluated cardiac pacer device. IMPRESSION: No acute findings. Thank you for allowing us to participate in the care of your patient. Dictated and Authenticated by: John Palacios DO 04/26/2025 11:35 PM Eastern Time ([place] & [place]) FINDINGS: Bones/joints: Normal. Soft tissues: Thickened anterior soft tissue. IMPRESSION: 1. No acute findings. 2. Thickened anterior soft tissue which could represent contusion/hematoma. Thank you for allowing us to participate in the care of your patient. Dictated and Authenticated by: John Palacios DO 04/26/2025 11:34 PM Eastern Time ([place] & [place]) PFSH All Active Problems (Updated 04/27/25 @ 00:05 by Vlad Gutierrez DO) Sprain of right shoulder (Acute) Hematoma of left knee region (Acute) Injury of left knee (Acute) Foreign body (FB) in soft tissue (Acute) Sciatica, right side (Acute) Morbid obesity (Acute) Sleep apnea, obstructive (Chronic) Left ventricular hypertrophy (Acute) Iron deficiency (Acute) Hyperlipidemia (Acute) Hypercalcemia (Acute) GI bleed (Chronic) GERD (gastroesophageal reflux disease) (Chronic) Generalized anxiety disorder (Acute) Fatigue (Acute) Essential hypertension (Acute) Diverticulosis (Acute) Diabetes mellitus type 2, controlled, without complications (Acute) Coronary artery disease (Chronic) Stage 3 chronic kidney disease due to type 2 diabetes mellitus (Acute) Impacted cerumen, left ear (Acute) Nuclear senile cataract (Acute) Atherosclerosis of both carotid arteries (Acute) Benign hypertension (Acute) Angina pectoris (Chronic) Anemia (Chronic) Surgical History Status post cardiac pacemaker procedure Family History Mother Hyperlipidemia Hypertension Depression Father Hyperlipidemia Diabetes Heart disease Hypertension Obesity Stroke Sister Hyperlipidemia Diabetes Hypertension Heart disease Obesity Cancer Unspecified Brother No problems noted. Daughter Hypertension Son Hypertension Obesity Maternal Grandmother Cancer Unspecified Paternal Grandmother Memory loss Maternal Grandfather No problems noted. Paternal Grandfather Hyperlipidemia Heart disease Hypertension Obesity Social History Smoking/Tobacco Use Status: Never Second Hand Exposure: Yes Smoking risk assessment performed?: Yes Alcohol Intake: current Alcohol Intake frequency: a few times a month Alcohol type: beer and wine Drug use: Never Substance use type: does not use Caregiver/Support person: Yes Household members: spouse Housing: house Communication Needs: Hard of Hearing and Corrective Lenses Do you need help understanding health information?: Rarely Pets and animals: No Sexually active: No Do you think of yourself as: straight/heterosexual Current gender identity: female What is your relationship status?: How often do you talk on the phone with friends or family?: three or more times per week How often do you get together with friends or relatives?: three or more times per week How often do you attend jehovah's witness or catholic services?: decline to answer Do you belong to any clubs or organized social groups?: yes Panel score (0-1 are the most socially isolated patients): 3 What type of physical activity do you participate in: walking Duration: 15-30 minutes/day Frequency: daily Radha/Faith: Religious Special radha needs: No Seatbelt use: always Helmet use: Yes Helmet use: always Drive intox or ride w/intox local driver: No Do you feel safe at home: Yes Do you feel safe in your relationship?: Yes
[2025-04-27 00:08] VITALS: BP 158/88; PULSE 81; RESP 18; O2SAT 96
== END 2025-04-27 00:15 | disposition home or self-care (01) ==
PROVIDERS: Emergency Provider Student in an Organized Health Care Education/Training Program; PCP Nurse Practitioner Family
DX: S43.401A Unspecified sprain of right shoulder joint, initial encounter (principal); S80.02XA Contusion of left knee, initial encounter; Z79.01 Long term (current) use of anticoagulants; W01.198A Fall on same level from slipping, tripping and stumbling with subsequent striking against other object, initial encounter
CPT/HCPCS: 99284 ×2; 36415; 73030; 73564; 85025; 85610; 85730

== ENCOUNTER 2025-05-04 14:59 | Emergency (ER) | payer MEDICARE, OTHER, SELFPAY ==
--- NOTE | 2025-05-04 15:00 | DI.RAD_ITS ---
Exam(s) XR KNEE LT 3V AP,LAT,MARCELLA EXAM: XR KNEE LT 3V AP,LAT,MARCELLA CLINICAL HISTORY: increased pain s/p fall a week ago. TECHNIQUE: 2D digital imaging was performed. COMPARISON: CR,XR XR KNEE LT 4V AP,LAT,MARCELLA,PAT from 04/26/2025 FINDINGS: 3 views No evidence of acute fracture nor prominent joint effusion. Minimal degenerative changes. IMPRESSION: No obvious acute osseous findings. If clinically indicated follow-up MRI can be performed for added sensitivity and specificity. DATA REPOSITORY: RADIATION DOSE DELIVERED:
[2025-05-04 15:01] VITALS: BP 137/54; PULSE 68; RESP 20; TEMP 36.9; O2SAT 96
--- NOTE | 2025-05-04 15:21 | W.ED.GENAD ---
Discharge Plan Disposition Patient Disposition: Home Condition: Stable Discharge Details Clinical Impression: Traumatic hematoma of left knee Primary Care Provider: Cole Pina ED Provider: Noah Moreau Home Meds and New Rx's Prescriptions: New fluconazole 150 mg tablet 150 mg PO DAILY Qty: 2 0RF Rx Instructions: take 1 tablet on day 1 and if still symptomatic in 3 days take another 1 tablet amoxicillin-pot clavulanate 875-125 mg tablet 1 tab PO BID Qty: 14 0RF Continued allopurinol 100 mg tablet 300 mg .ROUTE .COMPLEX Rx Instructions: 300 mg; insulin glargine [Basaglar KwikPen U-100 Insulin] 100 unit/mL (3 mL) insulin pen 50 unit subcut BID Ozempic 0.25 mg or 0.5 mg (2 mg/3 mL) pen injector 0.5 mg subcut QWEEK Rx Instructions: for 4 weeks cholecalciferol (vitamin D3) 10 mcg (400 unit) capsule 10 mcg PO DAILY fenofibrate 160 mg tablet 160 mg PO DAILY Qty: 90 1RF metformin 1,000 mg tablet 1,000 mg PO BID Qty: 180 0RF insulin asp prt-insulin aspart [Novolog Mix 70-30FlexPen U-100] 100 unit/mL (70-30) insulin pen 47 unit subcut QAM Qty: 90 1RF Rx Instructions: 47 U AM 78 U PM rosuvastatin 20 mg tablet 20 mg PO DAILY Eliquis 5 mg tablet 5 mg PO BID sotalol 80 mg tablet 80 mg PO BID furosemide 40 mg tablet 40 mg PO DAILY losartan 100 mg tablet 100 mg PO DAILY amlodipine 10 mg tablet 5 mg PO DAILY paroxetine HCl 20 mg tablet 20 mg PO DAILY aspirin [Adult Low Dose Aspirin] 81 mg tablet,delayed release (DR/EC) 81 mg PO DAILY Osteo Bi-Flex Triple Strength 750 mg-644 mg- 30 mg-1 mg tablet 1 tab PO BID cyanocobalamin (vitamin B-12) 2,500 mcg tablet 2,500 mcg PO DAILY vitamin B complex Capsule 1 cap PO DAILY fluconazole 150 mg tablet 150 mg PO ONCE Qty: 2 0RF Rx Instructions: Administer 1 tab once. If symptoms persist may repeat in 3 days albuterol sulfate 90 mcg/actuation HFA aerosol inhaler 2 puff inhalation Q6H PRN (Reason: shortness of breath or wheezing) Qty: 6.7 0RF (DME) True Metrix Glucose Test Strip Strip See Rx Instructions .Route Qty: 100 0RF Rx Instructions: As directed. Dx: E11.9 Once daily testing Discharge Instructions Additional Instructions: You can keep the knee open to air when you are sitting and lying down keeping elevated to help. If you are walking around or going outside the house I would recommend covering it with an Guero bandage. Use the bacitracin twice a day on the blister until it is gone. Follow-up with your primary care provider if you are not improving in 1 to 2 weeks. Return to the ED if you have new symptoms such as high fevers or you feel more ill. I would recommend only taking the fluconazole if you develop symptoms of a yeast infection. Stand Alone Forms: Portal Information HPI General Date/Time Provider Initiated Documentation: 05/04/25 15:01. Limitations to Documentation: no limitations. Information obtained by: patient. History of Present Illness 69 year old F presents to the emergency department with the chief complaint of left knee blister/swelling, described as moderate, Patient started experiencing this week(s) (1) and it has been constant. No relieving factors improve symptom(s), No exacerbating factors reported . Patient notes no other symptoms.. Patient did receive the following treatments prior to arrival, none Related Data Home Medications Medication Instructions Recorded Confirmed amlodipine 10 mg tablet 5 mg PO DAILY 12/21/22 05/04/25 apixaban 5 mg tablet (Eliquis) 5 mg PO BID 12/21/22 05/04/25 aspirin 81 mg tablet,delayed 81 mg PO DAILY 12/21/22 05/04/25 release (Adult Low Dose Aspirin) cyanocobalamin (vitamin B-12) 2,500 mcg PO DAILY 12/21/22 05/04/25 2,500 mcg tablet furosemide 40 mg tablet 40 mg PO DAILY 12/21/22 05/04/25 glucosamine 750 [id number] 1 tab PO BID 12/21/22 05/04/25 no1 644 mg-C 30 mg-ara 1 mg tablet (Osteo Bi-Flex Triple Strength) losartan 100 mg tablet 100 mg PO DAILY 12/21/22 05/04/25 paroxetine HCl 20 mg tablet 20 mg PO DAILY 12/21/22 05/04/25 rosuvastatin 20 mg tablet 20 mg PO DAILY 12/21/22 05/04/25 sotalol 80 mg tablet 80 mg PO BID 12/21/22 05/04/25 vitamin B complex 1 cap PO DAILY 12/21/22 05/04/25 cholecalciferol (vitamin D3) 10 10 mcg PO DAILY 01/19/23 05/04/25 mcg (400 unit) capsule fenofibrate 160 mg tablet 160 mg PO DAILY #90 tabs 01/19/23 05/04/25 insulin aspar prot-insulin aspart 47 unit (0.47 mL) subcut QAM #90 mL 01/19/23 05/04/25 100 unit/mL (70-30) subcutaneous pen (Novolog Mix 70-30FlexPen U-100) metformin 1,000 mg tablet 1,000 mg PO BID #180 tabs 01/19/23 05/04/25 fluconazole 150 mg tablet 150 mg PO ONCE #2 tabs 03/19/24 05/04/25 albuterol sulfate 90 mcg/actuation 2 puff inhalation Q6H PRN 04/30/24 05/04/25 aerosol inhaler shortness of breath or wheezing #6.7 grams blood sugar diagnostic (True #100 ea 04/30/24 05/04/25 Metrix Glucose Test Strip) allopurinol 100 mg tablet 300 mg .Route .COMPLEX 11/16/24 05/04/25 insulin glargine 100 unit/mL (3 50 unit subcut BID 11/16/24 05/04/25 mL) subcutaneous pen (Basaglar KwikPen U-100 Insulin) semaglutide 0.25 mg or 0.5 mg (2 0.5 mg subcut QWEEK 11/16/24 05/04/25 mg/3 mL) subcutaneous pen injector (Ozempic) amoxicillin 875 mg-potassium 1 tab PO BID #14 tabs 05/04/25 clavulanate 125 mg tablet fluconazole 150 mg tablet 150 mg PO DAILY #2 tabs 05/04/25 Previous Rx's Medication Instructions Recorded fenofibrate 160 mg tablet 160 mg PO DAILY #90 tabs 01/19/23 insulin aspar prot-insulin aspart 47 unit (0.47 mL) subcut QAM #90 mL 01/19/23 100 unit/mL (70-30) subcutaneous pen (Novolog Mix 70-30FlexPen U-100) metformin 1,000 mg tablet 1,000 mg PO BID #180 tabs 01/19/23 fluconazole 150 mg tablet 150 mg PO ONCE #2 tabs 03/19/24 albuterol sulfate 90 mcg/actuation 2 puff inhalation Q6H PRN 04/30/24 aerosol inhaler shortness of breath or wheezing #6.7 grams blood sugar diagnostic (True #100 ea 04/30/24 Metrix Glucose Test Strip) amoxicillin 875 mg-potassium 1 tab PO BID #14 tabs 05/04/25 clavulanate 125 mg tablet fluconazole 150 mg tablet 150 mg PO DAILY #2 tabs 05/04/25 Allergies Allergy/AdvReac Type Severity Reaction Status Date / Time ibuprofen Allergy Intermediate Anaphylaxis Verified 05/04/25 15:07 General Stated Complaint: Recheck IRVERA: 3 Review of Systems All systems reviewed & are unremarkable except as noted in HPI and below Constitutional Constitutional: Denies chills, Denies fever(s) and Denies weakness Cardiovascular Cardiovascular: Denies chest pain and Denies dyspnea Respiratory Respiratory: Denies cough and Denies dyspnea Gastrointestinal Gastrointestinal: Denies abdominal pain, Denies nausea and Denies vomiting Musculoskeletal Musculoskeletal: Reports joint swelling Neurologic Neurologic: Denies weakness Exam Const General: no acute distress Orientation: alert HENNV Head: normal to inspection Ears: external ears normal General nose exam: external nose normal Mouth: moist mucous membranes Eyes General: appearance normal, both eyes and all related structures Neck Neck: normal visual inspection Resp Effort & Inspection: normal respiratory effort and able to speak in complete sentences Cardio Rate: regular rate Neuro General: patient alert and patient oriented x3 Extrem General: full ROM and other (bruising) Psych Mental Status: mental status grossly normal Course Vital Signs Vital signs: Vital Signs Temperature 36.9 C 05/04/25 15:01 Pulse 68 05/04/25 15:01 Respiratory Rate 20 05/04/25 15:01 Blood Pressure 137/54 L 05/04/25 15:01 Pulse Oximetry 96 05/04/25 15:01 Temperature 36.9 C 05/04/25 15:01 Pulse 68 05/04/25 15:01 Respiratory Rate 20 05/04/25 15:01 Blood Pressure 137/54 L 05/04/25 15:01 Blood Pressure Position Sitting 05/04/25 15:01 Pulse Oximetry 96 05/04/25 15:01 Oxygen Delivery Method Room Air 05/04/25 15:01 Oxygen Flow Rate 0 05/04/25 15:01 Medical Decision Making 69-year-old female with a history of pacemaker, diabetes, hypertension, chronic kidney disease, states history of A-fib on Eliquis comes in with continued left knee swelling and a blister that popped. She was seen after she fell from tripping on carpet a week ago and had negative x-rays of her left knee. She says that the swelling has improved but her left knee and felt a blister drained earlier today. Denies any fevers, chills. Left knee is bruised with what appears to be a blood blister on the anterior left knee that has been open. There is no signs of erythema. She is able to range her knee well. She has intact sensation and pulses. I suspect she has a hematoma and a blood blister from being on Eliquis, will recheck x-rays send check CBC CMP inflammatory markers. Given her lack of fevers chills or erythema I doubt septic joint. Patient's x-ray shows no findings of concern, no effusions. No leukocytosis, has mild elevation in sed rate and CRP. Images and open blistering that initiate empiric antibiotics to prevent cellulitis. Will also provide topical bacitracin to the open blister. She is stable for discharge and will follow-up with her PCP as needed and return precautions given. [facility] All Active Problems (Updated 05/04/25 @ 16:24 by Noah Moreau MD) Traumatic hematoma of left knee (Acute) Sprain of right shoulder (Acute) Hematoma of left knee region (Acute) Injury of left knee (Acute) Foreign body (FB) in soft tissue (Acute) Sciatica, right side (Acute) Morbid obesity (Acute) Sleep apnea, obstructive (Chronic) Left ventricular hypertrophy (Acute) Iron deficiency (Acute) Hyperlipidemia (Acute) Hypercalcemia (Acute) GI bleed (Chronic) GERD (gastroesophageal reflux disease) (Chronic) Generalized anxiety disorder (Acute) Fatigue (Acute) Essential hypertension (Acute) Diverticulosis (Acute) Diabetes mellitus type 2, controlled, without complications (Acute) Coronary artery disease (Chronic) Stage 3 chronic kidney disease due to type 2 diabetes mellitus (Acute) Impacted cerumen, left ear (Acute) Nuclear senile cataract (Acute) Atherosclerosis of both carotid arteries (Acute) Benign hypertension (Acute) Angina pectoris (Chronic) Anemia (Chronic) Surgical History Status post cardiac pacemaker procedure Family History Mother Hyperlipidemia Hypertension Depression Father Hyperlipidemia Diabetes Heart disease Hypertension Obesity Stroke Sister Hyperlipidemia Diabetes Hypertension Heart disease Obesity Cancer Unspecified Brother No problems noted. Daughter Hypertension Son Hypertension Obesity Maternal Grandmother Cancer Unspecified Paternal Grandmother Memory loss Maternal Grandfather No problems noted. Paternal Grandfather Hyperlipidemia Heart disease Hypertension Obesity Social History Smoking/Tobacco Use Status: Never Second Hand Exposure: Yes Smoking risk assessment performed?: Yes Alcohol Intake: current Alcohol Intake frequency: a few times a month Alcohol type: beer and wine Drug use: Never Substance use type: does not use Caregiver/Support person: Yes Household members: spouse Housing: house Communication Needs: Hard of Hearing and Corrective Lenses Do you need help understanding health information?: Rarely Pets and animals: No Sexually active: No Do you think of yourself as: straight/heterosexual Current gender identity: female What is your relationship status?: How often do you talk on the phone with friends or family?: three or more times per week How often do you get together with friends or relatives?: three or more times per week How often do you attend scientologist or sikh services?: decline to answer Do you belong to any clubs or organized social groups?: yes Panel score (0-1 are the most socially isolated patients): 3 What type of physical activity do you participate in: walking Duration: 15-30 minutes/day Frequency: daily Radha/Quaker: Rastafarian Special radha needs: No Seatbelt use: always Helmet use: Yes Helmet use: always Drive intox or ride w/intox entry driver operator: No Do you feel safe at home: Yes Do you feel safe in your relationship?: Yes
[2025-05-04 15:49] LABS: Abs Immature Grans 0.02 10^3/uL (0.0-0.06); HCT 34.9 % (36.0-46.0); HGB 11.3 g/dL (11.2-15.7); Immature Grans % 0.2 %; MCH 30.8 pg (27.0-33.0); MCHC 32.4 % (32.0-36.0); MCV 95 fL (80-95); MPV 11.3 fL (8.0-11.0); Platelet Count 321 10^3/uL (130-400); RBC 3.67 10^6/uL (3.93-5.22); RDW 13.5 % (11.7-14.6); RDW-SD 47.5 fL; WBC 8.89 10^3/uL (4.4-10.8)
[2025-05-04 15:52] LABS: ESR 50 mm/hr (0-30)
[2025-05-04 16:05] LABS: C-Reactive Protein 1.44 mg/dL (<=0.50); Magnesium 2.0 mg/dL (1.6-2.6)
[2025-05-04 16:06] LABS: ALT 16 U/L (10-49); AST 19 U/L (<34); Albumin 4.3 g/dL (3.4-5.0); Alkaline Phosphatase 57 U/L (46-116); Anion Gap 8.3 mmol/L (3-11); BUN 39 mg/dL (9-23); Bilirubin, Total 0.40 mg/dL (0.2-1.2); CO2 28.7 mmol/L (20.0-31.0); Calcium 9.6 mg/dL (8.3-10.6); Chloride 106 mmol/L (98-107); Glucose 70 mg/dL (74-106); Potassium 4.6 mmol/L (3.5-5.1); Sodium 143 mmol/L (136-145); Total Protein 7.5 g/dL (5.7-8.2)
[2025-05-04] MEDS: Amox. 875/Clav. 125, 2 TABS/BTL 1 TAB PO (16:35)
[2025-05-04] MEDS: Bacitracin 30 GM TUBE TP (16:35)
== END 2025-05-04 17:04 | disposition home or self-care (01) ==
LOC: ER 16:27
PROVIDERS: Emergency Provider Emergency Medicine; PCP Nurse Practitioner Family
DX: S80.02XA Contusion of left knee, initial encounter (principal); W01.0XXA Fall on same level from slipping, tripping and stumbling without subsequent striking against object, initial encounter; Z79.01 Long term (current) use of anticoagulants
CPT/HCPCS: 99283; 99284; 36415; 73562; 80053; 85652; 83735; 85025; 86140